=== PATIENT | female | born 1970 | race Caucasian/White ===

== ENCOUNTER 2019-04-24 19:00 | Emergency (ER) | payer BC ==
[2019-04-24] MEDS ORDERED: Alum Hydrox/Mag Hydrox/Simeth 15 ML, Lidocaine 2% 15 ML PO ONE ×2 (19:34)
[2019-04-24] MEDS ORDERED: Sodium Chloride 0.9% 1,000 ML IV SCH (19:45)
--- NOTE | 2019-04-24 19:58 | EDM.PDOC ---
ED HPI GENERAL MEDICAL PROBLEM - General Chief Complaint: Cardiovascular Problem Stated Complaint: TIGHTNESS IN CHEST Time Seen by Provider: 04/24/19 19:15 Source of Information: Reports: Patient History Limitations: Reports: No Limitations - History of Present Illness INITIAL COMMENTS - FREE TEXT/NARRATIVE: 48 yo female presents to ER with episode of chest pain. She had been having intermittent chest discomfort for the last 2 weeks. This evening after eating pizza for supper she was driving home and developed chest pain and nausea, began to feel flush. She was nauseated but did not vomit. she is a nonsmoker. No cardiac family history. currently both arms "feel funny" she denies current chest pain. chest tightness Pain Score (Numeric/FACES): 5 - Related Data Allergies Allergy/AdvReac Type Severity Reaction Status Date / Time ibuprofen Allergy Hives Uncoded 04/24/19 19:12 Home Meds: Home Meds NK [No Known Home Meds] 04/24/19 [History] Past Medical History Genitourinary History: Reports: Renal Calculus [employer] History: Reports: Neurological History: Reports: Concussion Psychiatric History: Reports: Depression Endocrine/Metabolic History: Reports: Obesity/BMI 30+ - Past Surgical History GI Surgical History: Reports: Appendectomy, Cholecystectomy Female Surgical History: Reports: Ureteral Stent Social & Family History - Tobacco Use Smoking Status *Q: Never Smoker - Caffeine Use Caffeine Use: Reports: Coffee - Recreational Drug Use Recreational Drug Use: No ED ROS GENERAL - Review of Systems Review Of Systems: See Below Constitutional: Denies: Fever, Chills, Fatigue Respiratory: Denies: Shortness of Breath, Wheezing Cardiovascular: Reports: Chest Pain. Denies: Edema GI/Abdominal: Reports: Abdominal Pain (mild epigastric) Skin: Denies: Rash ED EXAM, GENERAL - Physical Exam Exam: See Below Exam Limited By: No Limitations General Appearance: Alert, WD/WN, No Apparent Distress Head: Atraumatic, Normocephalic Neck: Normal Inspection, Supple, Non-Tender, Full Range of Motion. No: Lymphadenopathy (R), Lymphadenopathy (L) Respiratory/Chest: No Respiratory Distress, Lungs Clear, Normal Breath Sounds, No Accessory Muscle Use, Chest Non-Tender. No: Crackles, Rhonchi, Wheezing Cardiovascular: Normal Peripheral Pulses, Regular Rate, Rhythm, No Edema, No Murmur GI/Abdominal: Normal Bowel Sounds, Soft, No Abnormal Bruit, No Mass, Tender ( epigastric mild) Neurological: Alert, Oriented Psychiatric: Normal Affect, Normal Mood Skin Exam: Warm, Dry, Intact Course - Vital Signs Last Recorded V/S: Last Vital Signs Temp 35.9 C 04/24/19 19:12 Pulse 73 04/24/19 19:54 Resp 12 04/24/19 19:54 BP 153/80 H 04/24/19 19:54 Pulse Ox 100 04/24/19 19:54 - Orders/Labs/Meds Orders: Active Orders 24 hr Category Date Time Status Cardiac Monitoring [RC] .As Directed Care 04/24/19 19:32 Active EKG Documentation Completion [RC] ASDIRECTED Care 04/24/19 19:33 Active Sodium Chloride 0.9% [Normal Saline] 1,000 ml Med 04/24/19 19:45 Active IV ASDIRECTED ED GI Medications Reflex [OM.PC] Stat Oth 04/24/19 19:32 Ordered EKG 12 Lead [EK] Stat Ther 04/24/19 19:33 Ordered Medication Orders Sodium Chloride (Normal Saline) 1,000 mls @ 500 mls/hr IV ASDIRECTED AMELIA Last Admin: 04/24/19 19:49 Dose: 500 mls/hr Labs: Laboratory Tests 04/24/19 04/24/19 Range/Units 19:52 19:52 WBC 8.6 (4.5-11.0) K/uL RBC 5.23 (3.30-5.50) M/uL Hgb 15.1 H (12.0-15.0) g/dL Hct 46.5 (36.0-48.0) % MCV 89 (80-98) fL MCH 29 (27-31) pg MCHC 33 (32-36) % Plt Count 213 (150-400) K/uL Neut % (Auto) 66 (36-66) % Lymph % (Auto) 23 L (24-44) % Knott % (Auto) 9 H (2-6) % Eos % (Auto) 2 (2-4) % Baso % (Auto) 1 (0-1) % Sodium 140 (140-148) mmol/L Potassium 3.9 (3.6-5.2) mmol/L Chloride 101 (100-108) mmol/L Carbon Dioxide 30 (21-32) mmol/L Anion Gap 9.1 (5.0-14.0) mmol/L BUN 11 (7-18) mg/dL Creatinine 0.8 (0.6-1.0) mg/dL Est Cr Clr Drug Dosing 78.23 mL/min Estimated GFR (MDRD) > 60 (>60) Glucose 122 H (74-106) mg/dL Calcium 9.9 (8.5-10.1) mg/dL CK-MB (CK-2) 1.0 (0-3.6) mg/mL Troponin I 0.027 (0.000-0.056) ng/mL Meds: Medications Generic Name Dose Route Start Last Admin Trade Name Freq PRN Reason Stop Dose Admin Sodium Chloride 1,000 mls @ 500 mls/hr 04/24/19 19:45 04/24/19 19:49 Normal Saline IV 500 mls/hr ASDIRECTED AMELIA Administration Discontinued Medications Generic Name Dose Route Start Last Admin Trade Name Freq PRN Reason Stop Dose Admin Al Hydroxide/Mg Hydroxide 15 0 ml 04/24/19 19:34 04/24/19 19:50 ml/ Lidocaine HCl 15 ml PO 04/24/19 19:35 30 ml ONETIME ONE Administration - Re-Assessments/Exams Free Text/Narrative Re-Assessment/Exam: 04/24/19 20:37 GI cocktail relieved pain. EKG unremarkable. Trp negative Departure - Departure Time of Disposition: 20:44 Disposition: Home, Self-Care 01 Condition: Good Clinical Impression: Chest pain Qualifiers: Chest pain type: other chest pain Qualified Code(s): R07.89 - Other chest pain ; R07.8 - Other chest pain GERD (gastroesophageal reflux disease) Qualifiers: Esophagitis presence: without esophagitis Qualified Code(s): K21.9 - Gastro- esophageal reflux disease without esophagitis Instructions: Gastroesophageal Reflux Disease, Adult, [id number] Referrals: PCP,None [Primary Care Provider] - Forms: ED Department Discharge Additional Instructions: keep your appt with you primary care provider for a physical start using the omeprazole on a daily basis - My Orders Last 24 Hours: My Active Orders 04/24/19 19:32 Cardiac Monitoring [RC] .As Directed ED GI Medications Reflex [OM.PC] Stat 04/24/19 19:33 EKG Documentation Completion [RC] ASDIRECTED EKG 12 Lead [EK] Stat 04/24/19 19:45 Sodium Chloride 0.9% [Normal Saline] 1,000 ml IV ASDIRECTED - Assessment/Plan Last 24 Hours: My Active Orders 04/24/19 19:32 Cardiac Monitoring [RC] .As Directed ED GI Medications Reflex [OM.PC] Stat 04/24/19 19:33 EKG Documentation Completion [RC] ASDIRECTED EKG 12 Lead [EK] Stat 04/24/19 19:45 Sodium Chloride 0.9% [Normal Saline] 1,000 ml IV ASDIRECTED
== END 2019-04-24 21:10 | disposition home or self-care (01) ==
LOC: JP.ED 19:00
DX: K21.9 Gastro-esophageal reflux disease without esophagitis (principal); R07.89 Other chest pain; Z88.6 Allergy status to analgesic agent
CPT/HCPCS: 36415; 80048; 82553; 84484; 85025; 93005; 96360; 99285; A9270; J7030